=== PATIENT | female | born 2000 ===

== ENCOUNTER 2025-05-13 13:29 | Inpatient (IN) | payer OTHER ==
[~2025-05-13] VITALS: Ht 167.6 cm; Wt 58.6 kg
[2025-05-13 16:16] VITALS: BP 114/82
[2025-05-13 16:37] VITALS: BP 114/82
[2025-05-13] MEDS ORDERED: FLU VACC TS2025-26(6MOS UP)/PF 45 MCG/0.5 ML SYRINGE IM SCH (16:45)
[2025-05-13] MEDS ORDERED: Aluminum Hydroxide 320MG/5ML 473 ML PO PRN (16:45)
[2025-05-13] MEDS ORDERED: Ondansetron 4 MG SoluTab MM PRN (16:50)
[2025-05-13] MEDS ORDERED: Polyethylene Glycol 3350 17 gm PO PRN (16:50)
[2025-05-13] MEDS ORDERED: Adderall Xr 2020 MG PO (17:42)
[2025-05-13] MEDS ORDERED: ONDA4 PO (17:49)
[2025-05-13] MEDS ORDERED: Inderal 20 mg T20 MG PO (17:49)
--- NOTE | 2025-05-13 18:09 | NUR ---
ADMISSION NOTE PT ARRIVED VIA MEDICAL TRANSPORT FROM [facility] IN [place], [place]. BELONGINGS WERE GATHERED AND PLACED IN HER PERSONAL TOTE. PT WAS GIVEN A 2 RN SKIN CHECK BY THIS RN AND MELANIE, NO RASHES, WOUNDS, OR SKIN ISSUES NOTED. SHE DRESSED INTO THE [facility] SCRUBS AND HEIGHT AND WEIGHT OBTAINED. PT WAS VERY ANXIOUS AND TEARFUL, FIDGETING WITH FINGERS, AND SHAKING. SHE REFUSED TO SIGN ALL FORMS STATING THAT HER ANXIETY IS SO HIGH THAT SHE CANNOT COMPREHEND WHAT SHE IS READING. PT HAS A HX OF ANXIETY/PANIC DISORDER AND ADHD. SHE WAS BROUGHT TO ED BY S/O AND MOTHER FOR EXHIBITING DIORGANIZED SPEECH, INSOMNIA, AND LACK OF APPETITE. PT STATES SHE HAS NEVER HAD THESE SYMPTOMS NOR HAS SHE BEEN HOSPITALIZED FOR PSYCH/BEHAVIOR ISSUES, SO ADMISSION IS VERY SCARY TO HER AND INCREASES HER ANXIETY. PT IS COOPERATIVE WITH ALL BUT SIGNING FORMS. SHE AGREES TO TAKING ANXIETY MEDICATIONS, VISTARIL PRN WAS GIVEN AND PT WAS INFORMED THAT ZYPREXA IS AVAILABLE IF NEEDED. PT WAS ORIENTED TO THE PHONE RULES, VISITATION RULES, AND UNIT EXPECTATIONS. SHE WAS ORIENTED TO THE UNIT AND HER ROOM. PT MADE A PHONE CALL TO HER MOTHER AND BOYFRIEND AND THIS SEEMED TO ALSO HELP CALM HER DOWN. ON ARRIVAL HER SPEECH WAS MUMBLED, LOW VOLUME, AND PT HAD DELAY FINDING WORDS AT TIMES, BUT SHE IS ORIENTED TO SELF, HX, AND IS ABLE TO ANSWER ALL QUESTIONS. SHE DENIES SI/HI/AVTH. SHE EXPRESSES SHE WANTS TO GET HER ANXIETY UNDER CONTROL, MEDICATIONS STABLE, AND GET SET UP WITH OUTPATIENT F/U PROVIDERS.
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
[2025-05-13 20:08] VITALS: BP 103/66
--- NOTE | 2025-05-14 04:38 | NUR ---
SHIFT SUMMARY PATIENT SLEEPING AT BEGINNING OF SHIFT AWAKENS TO VERBAL AND TACTILE STIMULI. SLOW TO ANSWER QUESTIONS AT TIMES, APPEARS CALM WITH FLAT AFFECT. WITH EACH ASSESSMENT QUESTION RETURN TO THE COMPLAINT OF FEELING COLD. 3RD BLANKET GIVEN. ORIENTATED TO BEING IN THE HOSPITAL, MONTH AND YEAR. UNSURE OF DAY OF WEEK. REF TO GET UP FOR SNACK "I'M JUST TIRED AND COLD" FALLING BACK TO SLEEP WHEN UNDISTURBED. DENIES SI, HI, OR AVTH. PATIENT MORE AWAKE WHEN ROOMMATE RETURN TO ROOM FOR SLEEP, REQUESTING SOMETHING FOR ANXIETY, WHEN INFORMED THAT SHE CAN COME DOWN TO THE MED ROOM FOR MEDICATION, PATIENT ROLLED OVER AND SAID "I'M NOT THAT ANXIOUS" APPEARS TO BE SLEEPING WELL T/O NIGHT RESP EVEN AND UNLABORED. CONTINUE TO MONITOR Q15MIN. NO PRN'S GIVEN T/O NIGHT
[2025-05-14 07:55] LABS: CHOL/HDL RATIO 3.3; Cholesterol 172 mg/dL (50-200); HDL Cholesterol 52 mg/dL (>39); LDL/HDL RATIO 1.9; Low Density Lipoprotein Chol 100 mg/dL (0-110); Triglycerides 99 mg/dL (30-140); Very Low Density Lipoprot Chol 19 mg/dL (6-28)
[2025-05-14 08:27] VITALS: BP 102/77
[2025-05-14] MEDS ORDERED: Multivitamins 1 Tab PO SCH (09:00)
--- NOTE | 2025-05-14 14:05 | NUR ---
SHIFT SUMMARY DENIES SI, HI, AVTH. ENDORSES ANXIOUSNESS D/T NEW TO UNIT AND BEING "OVERWHELMED", DECLINED PRN. ATTENDING GROUPS, MEALS, AND INTERACTING W/ PEERS/STAFF. PT HAS NOT MADE ANY BIZARRE STATEMENTS AT THIS TIME TO THIS RN.
[2025-05-14 19:03] VITALS: BP 132/94
--- NOTE | 2025-05-14 20:29 | NUR ---
MASS SCORE FOR PRN: PATIENT C/O ANXIETY, EVIDENCED BY MASS SCORE 3. PATIENT REQUESTED AND WAS GIVEN VISTARIL. CONTINUING TO MONITOR FOR EFFECTIVENESS.
--- NOTE | 2025-05-15 04:29 | NUR ---
SHIFT SUMMARY: PATIENT IS A 25 YEAR OLD FEMALE ADMITTED TO THE [facility] ON 05/13/25 FOR ALTERED MENTAL STATUS AND UNSPECIFIED PSYCHOSIS. SHE PRESENTED WELL GROOMED, WAS A AND O X4, SPOKE IN A MODERATE TONE OF VOICE AND MADE APPROPRIATE EYE CONTACT. SHE DESCRIBED HER MOOD "ANXIOUS". SHE DENIED SUICIDAL IDEATION, THOUGHTS OF SELF HARMING AND A/V/T HALLUCINATIONS. SHE PARTICIPATED IN SNACK AND WRAP UP GROUP, AND WAS COMPLIANT WITH EVENING MEDICATION ADMINISTRATION. SHE REQUESTED AND WAS GIVEN VISTARIL FOR A MASS SCORE OF 3 AT 2004, WHICH WAS EFFECTIVE. SHE REQUESTED AND WAS GIVEN NICORETTE GUM AT 2013. SHE WENT TO BED SHORTLY AFTER SNACK TIME AND WAS NOTED TO BE RESTING QUIETLY WITH EYES CLOSED AND RESPIRATIONS CONFIRMED FOR THE REMAINDER OF THE SHIFT. CONTINUING TO MONITOR FOR SAFETY WITH Q15 MINUTE CHECKS.
[2025-05-15 08:11] VITALS: BP 117/78
[2025-05-15 12:19] VITALS: BP 120/93
[2025-05-15 16:49] VITALS: BP 109/77
[2025-05-15 17:35] VITALS: BP 105/77
--- NOTE | 2025-05-15 17:49 | NUR ---
SHIFT SUMMARY DENIES SI, HI, AVTH. PLEASANT AND COOPERATIVE, ATTENDED GROUPS/MEALS, AND IS INTERACTING W/ PEERS AND STAFF. DURING PT VISIT TODAY, PT'S PARTNER AND MOM REQUESTED SOME INFORMATION REGARDING PT. DISCUSSED W/ MOM/PARTNER ABOUT POTENTIAL DISCHARGE TIMELINE AND MEDICATIONS. PT EXPRESSED DESIRE TO LEAVE, POTENTIALLY, AMA TOMORROW. DISCUSSED W/ PT AND VISITORS THE RISKS OF LEAVING AMA AND BENEFITS OF STAYING ON UNIT UNTIL DR DECIDES DISCHARGE IS SAFE. DISCUSSED W/ PT THAT SHE IS VOLUNTARY AND CAN LEAVE AMA IF SHE WISHES, BUT THE DOCTOR CAN PLACE A HOLD IF HE DEEMS THE PT IS UNSAFE TO SELF OR OTHERS IF LEAVING THE UNIT. THERAPEUTIC COMMUNICATION USED AND PT STATED SHE WILL TALK W/ DR TOMORROW MORNING AND APPEARS AMICABLE TO DISCHARGING SUNDAY. NO OTHER ACUTE EVENTS AT THIS TIME.
--- NOTE | 2025-05-16 01:06 | NUR ---
PATIENT CIWA: PATIENT RESTING QUIETLY IN BED WITH EYES CLOSED AND RESPIRATIONS CONFIRMED DURING CIWA CHECK AT 0000. WILL DO ANOTHER ASSESSMENT IF SHE AWAKENS. CONTINUING TO MONITOR FOR SAFETY WITH Q15 MINUTE CHECKS.
--- NOTE | 2025-05-16 04:06 | NUR ---
CIWA FOR 0400: PATIENT IS IN BED RESTING WITH EYES CLOSED AND RESPIRATIONS CONFIRMED. PATIENT HAS NO S/SX ETOH WITHDRAWAL AT THIS TIME. WILL REASSESS IF PATIENT AWAKENS. CONTINUING TO MONITOR FOR SAFETY WITH Q15 MINUTE CHECKS.
--- NOTE | 2025-05-16 04:08 | NUR ---
SHIFT SUMMARY: PATIENT IS A 25 YEAR OLD FEMALE PATIENT ADMITTED TO THE [facility] 05/13/25 WITH A DIAGNOSIS OF PSYCHOSIS AND UNSPECIFIED DEPRESSION. SHE PRESENTED WELL GROOMED, A AND O X4, SPEAKING IN A MODERATE TONE OF VOICE AND MAKING APPROPRIATE EYE CONTACT. SHE DESCRIBED HER MOOD "GOOD. I THINK I'M MUCH BETTER AND IT IS GOING TO BE TIME TO DISCHARGE ME AND MAKE ROOM FOR SOMEONE ELSE IN NEED." PATIENT DENIED SUICIDAL IDEATION, THOUGHTS OF SELF HARMING AND A/V/T HALLUCINATIONS. SHE PARTICIPATED IN SNACK AND WRAP UP GROUP IN THE [place] AREA AT 1999, AND WAS COMPLIANT WITH EVENING MEDICATION ADMINISTRATION. SHE WAS EDUCATED ON USING NICORETTE GUM RIGHT BEFORE GOING TO SLEEP AND POSSIBLE SIDE EFFECTS. SHE WENT TO BED AFTER MEDICATION ADMINISTRATION, AND WAS NOTED TO BE RESTING QUIETLY WITH EYES CLOSED AND RESPIRATIONS CONFIRMED FOR THE REMAINDER OF THE SHIFT. CONTINUING TO MONITOR FOR SAFETY WITH Q15 MINUTE CHECKS.
[2025-05-16 07:27] VITALS: BP 115/79
--- NOTE | 2025-05-16 08:34 | NUR ---
DISCHARGE PT DENIES SI, HI, AVTH. THIS AM, PATIENT MET WITH DR TAN AND THIS RN (PER REQUEST). PATIENT EXPRESSED DESIRE TO DISCHARGE TODAY D/T NOT HAVING SI, HI, AVTH AND NO LONGER PSYCHOTIC. DR TAN AND THIS RN INFORMED PT THAT DISCHARGES DO NOT HAPPEN ON WEEKEND AND THAT A SUNDAY DISCHARGE IS LIKELY. POST MEETING PT EXPRESSED DESIRE TO DISCHARGE TODAY, INFORMED PT ABOUT RISKS OF DISCHARGING AMA AND BENEFITS OF STAYING ON UNIT, THERAPEUTIC COMMUNICATION ALSO USED. PT STATED, "I DON'T WANT TO HURT MYSELF OR OTHERS... THIS PLACE IS JUST MAKING MY MENTAL WORSE... I JUST WANT TO BE WITH MY FAMILY, TOUCH MY PARTNER, AND DO HOLIDAY THINGS WITH THEM". PT ADAMANT ABOUT DISCHARGING. DR TAN, AND CHARGE NURSE NOTIFIED. PATIENT DISCHARGED TO BOYFRIEND W/ BELONGINGS.
== END 2025-05-16 08:15 | disposition home or self-care (01) | DRG 882 ==
LOC: BHU 13:29
PROVIDERS: Psychiatry & Neurology Psychiatry; ADMIT Psychiatry & Neurology Psychiatry
DX: F43.22 Adjustment disorder with anxiety (principal); F29 Unspecified psychosis not due to a substance or known physiological condition; F90.9 Attention-deficit hyperactivity disorder, unspecified type; F10.20 Alcohol dependence, uncomplicated; Z23 Encounter for immunization; Z88.0 Allergy status to penicillin; Z88.8 Allergy status to other drugs, medicaments and biological substances
CPT/HCPCS: 36415; 80061; 83036; A9270